=== PATIENT | female | born 1980 | race Caucasian/White ===

== ENCOUNTER 2021-02-05 13:56 | Emergency (ER) | payer OTHER, SELFPAY ==
[2021-02-05 13:57] VITALS: BP 127/90; PULSE 85; RESP 16; TEMP 37.2; BMI 32.5
--- NOTE | 2021-02-05 14:40 | RAD_ITS ---
STUDY: X-RAY - LEFT KNEE REASON FOR EXAM: Female, 41 years old. Pain. TECHNIQUE: 4 view(s) of the knee. COMPARISON: None. FINDINGS: Normal visualized distal femur. Normal visualized proximal tibia and fibula. Normal proximal tibiofibular articulation. Normal medial femorotibial compartment. Normal lateral femorotibial compartment. Slight lateral tilt and subluxation of the patella on the sunrise view. The soft tissue structures are unremarkable. RAD/Knee 4 or More Views IMPRESSION: Slight lateral tilt and subluxation of the hallux on the sunrise view. No acute finding. Electronically Signed: Art Fraga MD at 15:22 EDT , Service support ,
[2021-02-05] MEDS: Ibuprofen 600 MG Tablet PO (15:40)
--- NOTE | 2021-02-05 15:56 | ED.VIS.LOWEX ---
HPI History of Present Illness HPI Narrative: Nontraumatic left knee pain over the past 7 to 10 days. She works on her feet. Pain worse with movement. Ibuprofen taken, however none today. Denies previous knee issues in the past. She states she called [facility] orthopedic office has an appointment this coming Sunday however due to pain and unable to go to work came to the ED. Has not had x-rays of her knee. In addition reports intermittent pain in her wrist with tingling at the first 3 digits. She is right-hand dominant. She has been using the wrist brace which has helped her symptoms. Chief Complaint: Lower Extremity Injury [facility] Medical History Hypothyroid Home Medications aripiprazole 5 mg PO DAILY 02/05/21 [History Last Taken Unknown] azelastine 1 spray INTRANASAL DAILY 02/05/21 [History Last Taken Unknown] ferrous gluconate 324 mg PO DAILY 02/05/21 [History Last Taken Unknown] levothyroxine 112 mcg PO DAILY 02/05/21 [History Last Taken Unknown] Allergy/AdvReac Type Severity Reaction Status Date / Time latex Allergy Swelling Verified 02/05/21 15:42 tramadol AdvReac Other Verified 02/05/21 15:42 NARCOTICS AdvReac Other Uncoded 02/05/21 15:42 Social History Smoking Status: Never smoker ROS ROS ED Constitutional Constitutional ED: Denies chills, fever(s) or sweats Eyes Eyes: Denies change in vision ENT ENT ED: Denies dysphagia or sore throat Cardiovascular Cardiovascular: Denies chest pain, leg edema, palpitations or racing heartbeat Respiratory/Chest Respiratory/Chest: Denies cough, dyspnea or dyspnea on exertion Gastrointestinal Gastrointestinal: Denies abdominal pain, diarrhea, nausea or vomiting Genitourinary Genitourinary ED: Denies dysuria, hematuria or urinary frequency Musculoskeletal Musculoskeletal: Reports arthralgias; Denies back pain, extremity pain or neck pain Integumentary Denies rash or wounds Neurologic Neurologic: Denies headache(s), paresthesias or weakness EXAM Physical Exam Const Vital Signs: 02/05/21 13:57 Temperature 98.9 F Temperature Source Temporal Pulse Rate 85 Respiratory Rate 16 Blood Pressure 127/90 H Blood Pressure Mean 102 Positive well nourished and well developed General Appearance ED: well developed and NAD HEENT Reports moist mucous membranes normocephalic and atraumatic Eyes PERRL, EOMs intact bilaterally and conjunctivae normal General Eye ED: Yes normal appearance of both eyes Neck no lymphadenopathy and supple General: Negative for tenderness Chest Wall Chest: Negative for tenderness Resp normal respiratory effort and normal air movement Effort and Inspection: symmetric chest movement; Negative for respiratory distress Cardio regular rate, regular rhythm and no murmurs Peripheral Pulses: pulses 2+ throughout GI normal to inspection, nondistended, normoactive bowel sounds and non-tender Palpation: Negative for guarding or rebound tenderness present Back/Spine no CVA tenderness and no thoracic nor lumbar tenderness Extremity Extremity Narrative: Left lower extremity: Negative logroll, knee extensor mechanism intact. Negative varus and valgus, negative Marilyn's. Positive patellar grind. No ankle tenderness, skin intact. Neuro vas intact distally. Right upper extremity: Negative Phalen's, positive Tinel's at the wrists. No weakness. General Extremety ED: Negative for edema or tenderness General Extremity: Negative for edema Neuro oriented x3 and no sensory deficits noted Sensorium / Orientation: awake and alert Skin no rashes or lesions noted and no wounds MDM MDM MDM Narrative Medical decision making narrative: Patient exam of the knee concerns for patellofemoral chondritis. She had not had x-rays. Images obtained reviewed by myself and read by radiology, no fractures however reported slight lateral tilt and subluxation of the patellar. No significant arthritis findings. She was given ibuprofen in the ED and she will continue this along with wearing her knee sleeve. Her right upper extremity exam concerns for intermittent carpal tunnel syndrome. She has relief with her brace. Discussed with patient symptom control at this time and following up with her scheduled orthopedic visit on Sunday with [facility] for further evaluation and treatment options. All questions were answered. Radiography X-Ray: Read by ED Physician and Read by Radiologist Diagnostic Testing: Radiology Impression Knee X-Ray 02/05/21 14:40 IMPRESSION: Slight lateral tilt and subluxation of the hallux on the sunrise view. No acute finding. Electronically Signed: Art Fraga MD at 15:22 EDT , Service support , Discharge Plan Triage Chief Complaint: Lower Extremity Injury ED Provider: Dusty Horton Dx/Rx/DC Orders Clinical Impression: Patellofemoral chondrosis of left knee, Carpal tunnel syndrome of right wrist Instructions: Carpal Tunnel Syndrome, Patellofemoral Syndrome Prescriptions: No Action azelastine 137 mcg (0.1 %) aerosol,spray 1 spray INTRANASAL DAILY RF: 0 levothyroxine 112 mcg tablet 112 mcg PO DAILY RF: 0 aripiprazole 5 mg tablet 5 mg PO DAILY RF: 0 ferrous gluconate 324 mg (38 mg iron) tablet 324 mg PO DAILY RF: 0 Stand Alone Forms: ED Work / School Excuse Referrals: Yamile CAMPOS [Other] Activity Restrictions/Additional Instructions: Continue your knee sleeve brace. Continue ibuprofen 600 mg every 6 hours as needed. Keep your appointment with your orthopedist this coming Sunday for discussion of your carpal tunnel syndrome and your patellofemoral chondritis symptoms. Disposition Disposition: Home, Self Care
[2021-02-05 16:28] VITALS: RESP 18
== END 2021-02-05 16:29 | disposition home or self-care (01) ==
PROVIDERS: Emergency Provider Emergency Medicine
DX: G56.01 Carpal tunnel syndrome, right upper limb (principal); E03.9 Hypothyroidism, unspecified; Z79.899 Other long term (current) drug therapy
CPT/HCPCS: 73564; 99282